=== PATIENT | female | born 1950 | race Caucasian/White ===

== ENCOUNTER → 2017-11-08 | Outpatient (CLI) | payer MEDICARE ==
[2017-11-08 08:46] LABS: BASOPHILS ABSOLUTE AUTO 0.03 K/mm3 (0.00-0.23); BASOPHILS PERCENT AUTO 1 % (0-2); EOSINOPHILS ABSOLUTE AUTO 0.05 K/mm3 (0.00-0.68); EOSINOPHILS PERCENT AUTO 1 % (0-6); Hematocrit 40.4 % (33.0-51.0); Hemoglobin 13.2 g/dL (11.5-16.0); IMMATURE GRAN ABSOLUTE AUTO 0.01 K/mm3 (0.00-0.10); IMMATURE GRAN PERCENT AUTO 0 % (0-1); LYMPHOCYTES ABSOLUTE AUTO 1.45 K/mm3 (0.84-5.20); LYMPHOCYTES PERCENT AUTO 29 % (21-46); MONOCYTES ABSOLUTE AUTO 0.36 K/mm3 (0.16-1.47); MONOCYTES PERCENT AUTO 7 % (4-13); Mean Corpuscular HGB 31.7 pg (26.0-34.0); Mean Corpuscular HGB Conc 32.7 g/dL (31.5-36.5); Mean Corpuscular Volume 97 fL (80-100); Mean Platelet Volume 12.3 fL (9.1-12.4); NEUTROPHILS ABSOLUTE AUTO 3.12 K/mm3 (1.96-9.15); NEUTROPHILS PERCENT AUTO 62 % (41-73); Platelet Count 215 K/mm3 (150-400); RDW Coefficient Variation 12.6 % (11.7-14.2); RDW Standard Deviation 45.1 fL (35.1-46.3); Red Blood Cell Count 4.17 M/mm3 (3.80-5.20); White Blood Cell Count 5.02 K/mm3 (4.00-11.30)
[2017-11-08 09:06] LABS: Alanine Aminotransfer (ALT/SGP 30 U/L (12-78); Albumin, Blood 4.6 g/dL (3.4-5.0); Albumin/Globulin Ratio 1.4 (0.8-1.8); Alk Phos 73 U/L (40-126); Anion Gap 12 mmol/L (6-16); Aspartate Aminotrans (AST/SGOT 25 U/L (12-37); Bilirubin, Total 1.2 mg/dL (0.1-1.0); Blood Urea Nitrogen 9 mg/dL (8-24); Bun/Creatinine Ratio 11.5 (12.0-20.0); CO2, Blood 25 mmol/L (21-32); Calcium, Blood 9.7 mg/dL (8.5-10.1); Chloride, Blood 101 mmol/L (98-108); Creatinine, Blood 0.78 mg/dL (0.40-1.00); Globulin, Blood 3.4 g/dL (2.2-4.0); Glomerular Filtration Rate >60 (60-); Glucose, Blood 127 mg/dL (70-99); Sodium, Blood 138 mmol/L (136-145)
== END | disposition home or self-care (01) ==
LOC: LAB SHORT 08:34 → LAB EV 08:34
PROVIDERS: Physician Assistant Medical
DX: I10 Essential (primary) hypertension (principal)
CPT/HCPCS: 80053; 85025

== ENCOUNTER → 2018-08-16 | Outpatient (CLI) | payer MEDICARE ==
[2018-08-18 15:06] LABS: HPV 16 Negative (Negative); HPV 18 Negative (Negative); HPV OTHER HR TYPES Negative (Negative)
== END | disposition home or self-care (01) ==
LOC: LAB 18:39 → LAB SHORT 18:39
PROVIDERS: Physician Assistant
DX: Z01.411 Encounter for gynecological examination (general) (routine) with abnormal findings (principal); R10.2 Pelvic and perineal pain
CPT/HCPCS: 87624; G0145

== ENCOUNTER → 2018-09-28 | Outpatient (CLI) | payer MEDICARE | END | disposition home or self-care (01) | LOC: LAB EV 12:26 → LAB SHORT 12:26 | DX: N39.0 Urinary tract infection, site not specified (principal) | CPT/HCPCS: 87086 ==

== ENCOUNTER 2020-03-17 13:20 | Inpatient (IN) | payer MEDICARE ==
[~2020-03-17] VITALS: Ht 165.1 cm; Wt 52.0 kg
[2020-03-17 14:35] LABS: BASOPHILS ABSOLUTE AUTO 0.01 K/mm3 (0.00-0.23); BASOPHILS PERCENT AUTO 0 % (0-2); EOSINOPHILS PERCENT AUTO 0 % (0-6); Hematocrit 41.5 % (33.0-51.0); Hemoglobin 13.4 g/dL (11.5-16.0); IMMATURE GRAN ABSOLUTE AUTO 0.04 K/mm3 (0.00-0.10); IMMATURE GRAN PERCENT AUTO 0 % (0-1); LYMPHOCYTES ABSOLUTE AUTO 0.38 K/mm3 (0.84-5.20); LYMPHOCYTES PERCENT AUTO 4 % (21-46); MONOCYTES ABSOLUTE AUTO 0.26 K/mm3 (0.16-1.47); MONOCYTES PERCENT AUTO 3 % (4-13); Mean Corpuscular HGB 31.5 pg (26.0-34.0); Mean Corpuscular HGB Conc 32.3 g/dL (31.5-36.5); Mean Corpuscular Volume 98 fL (80-100); Mean Platelet Volume 12.4 fL (9.1-12.4); NEUTROPHILS ABSOLUTE AUTO 8.69 K/mm3 (1.96-9.15); NEUTROPHILS PERCENT AUTO 93 % (41-73); Platelet Count 199 K/mm3 (150-400); RDW Standard Deviation 46.2 fL (35.1-46.3); Red Blood Cell Count 4.25 M/mm3 (3.80-5.20); White Blood Cell Count 9.38 K/mm3 (4.00-11.30)
[2020-03-17 16:04] LABS: Alanine Aminotransfer (ALT/SGP 49 U/L (12-78); Albumin, Blood 3.9 g/dL (3.4-5.0); Albumin/Globulin Ratio 1.1 (0.8-1.8); Alk Phos 77 U/L (50-136); Anion Gap 10 mmol/L (6-16); Aspartate Aminotrans (AST/SGOT 29 U/L (12-37); Bilirubin, Total 0.9 mg/dL (0.1-1.0); Blood Urea Nitrogen 10 mg/dL (8-24); Bun/Creatinine Ratio 15.5 (12.0-20.0); CO2, Blood 22 mmol/L (21-32); Calcium, Blood 9.5 mg/dL (8.5-10.1); Chloride, Blood 102 mmol/L (98-108); Creatinine, Blood 0.65 mg/dL (0.40-1.00); Globulin, Blood 3.5 g/dL (2.2-4.0); Glomerular Filtration Rate >60 (60-); Glucose, Blood 206 mg/dL (70-99); Potassium, Blood 3.4 mmol/L (3.5-5.5); Sodium, Blood 134 mmol/L (136-145); Total Protein, Blood 7.4 g/dL (6.4-8.2)
[2020-03-17 17:35] LABS: Source, Urine Clean Catch
[2020-03-17 17:38] LABS: Appearance, Urine Clear (Clear); Bilirubin, Urine Neg (Neg); Blood, Urine 3+ (Neg); Color, Urine Yellow (P-Yellow); Glucose Qualitative, Urine Neg (Neg); Ketones, Urine Neg (Neg); Leukocyte Esterase, Urine 3+ (Neg); Nitrite, Urine Neg (Neg); Protein, Urine 1+ (Neg); Urobilinogen, Urine NORM (Normal); pH, Urine 6.5 (5.0-8.0)
[2020-03-17 17:48] LABS: Bacteria Few /hpf; Squamous Epithelial Cells Rare /hpf (Few)
[2020-03-17] MEDS ORDERED: VALA500 PO (20:24)
[2020-03-17] MEDS ORDERED: BACL10 PO (20:24)
--- NOTE | 2020-03-18 01:58 | NUR ---
PT TAKEN TO OR @ 2232. PT REPORTS FEELING DIZZY WHEN SITTING UP, PT LAYED BACK DOWN AND TRANSPORTED ON OWN BED
[2020-03-18 02:13] LABS: BASOPHILS ABSOLUTE AUTO 0.01 K/mm3 (0.00-0.23); BASOPHILS PERCENT AUTO 0 % (0-2); EOSINOPHILS PERCENT AUTO 0 % (0-6); Hematocrit 42.4 % (33.0-51.0); Hemoglobin 13.5 g/dL (11.5-16.0); IMMATURE GRAN ABSOLUTE AUTO 0.03 K/mm3 (0.00-0.10); IMMATURE GRAN PERCENT AUTO 0 % (0-1); LYMPHOCYTES ABSOLUTE AUTO 0.78 K/mm3 (0.84-5.20); LYMPHOCYTES PERCENT AUTO 7 % (21-46); MONOCYTES PERCENT AUTO 5 % (4-13); Mean Corpuscular HGB Conc 31.8 g/dL (31.5-36.5); Mean Corpuscular Volume 98 fL (80-100); Mean Platelet Volume 11.6 fL (9.1-12.4); NEUTROPHILS ABSOLUTE AUTO 9.39 K/mm3 (1.96-9.15); NEUTROPHILS PERCENT AUTO 88 % (41-73); Platelet Count 187 K/mm3 (150-400); RDW Coefficient Variation 13.1 % (11.7-14.2); RDW Standard Deviation 47.1 fL (35.1-46.3); Red Blood Cell Count 4.35 M/mm3 (3.80-5.20); White Blood Cell Count 10.71 K/mm3 (4.00-11.30)
--- NOTE | 2020-03-18 02:24 | NUR ---
PATIENT ARRIVED TO ICU 10 FOR PACU RECOVERY, PATIENT RESTLESS AND PULLING AT LINES AT FIRST. PATIENT NOW CALM AND RELAXED ANSWERING QUESTIONS. ETTA, ABD DRESSING INTACT WITH DEJA WOUND VAC HOLDING GOOD SUCTION. GIORGI DRAINED OF 50 CC SEROSANG FLUID. NG IN PLACE TO LEFT CASTELLON AND CLAMPED. PLAN TO TRANSFER TO SURGICAL 210 POST PACU IF BP REMAINS STABLE.
[2020-03-18 02:27] LABS: Anion Gap 6 mmol/L (6-16); Blood Urea Nitrogen 11 mg/dL (8-24); Bun/Creatinine Ratio 14.8 (12.0-20.0); CO2, Blood 24 mmol/L (21-32); Calcium, Blood 7.7 mg/dL (8.5-10.1); Chloride, Blood 109 mmol/L (98-108); Creatinine, Blood 0.74 mg/dL (0.40-1.00); Glomerular Filtration Rate >60 (60-); Glucose, Blood 171 mg/dL (70-99); Potassium, Blood 4.2 mmol/L (3.5-5.5); Sodium, Blood 139 mmol/L (136-145)
--- NOTE | 2020-03-18 03:21 | NUR ---
PT ARRIVED BACK TO ROOM 210 FROM ICU RECOVERY. PT A/O UPON ARRIVAL, VSS, SATS >95% ON RA, LUNGS CLEAR T/O, PT DENIES SOB, REP PAIN W/DEEP BREATHS. MIDLINE DEJA DRESSING INTACT W/SCANT SS DRNG NOTED. GIORGI IN PLACE TO RLQ W/SS DRNG. PT C/O PAIN 8-01/10, MEDICATED PER EMAR. PT DENIES N/V, NGT TO LIS, NO DRNG NOTED AT THIS TIME. CONNOLLY PATANT DRNG YELLOW URINE. SCD'S PLACED. IVF RESTARTED PER ORDERS. CALL LIGHT IN REACH.
--- NOTE | 2020-03-18 06:25 | NUR ---
SHIFT SUMMARY ILEOCECECTOMY W/ INTERNAL HERNIA REPAIR OF THE SMALL BOWEL POD0, A/O X4, VSS, PATIENT NPO SINCE INITIAL ARRIVAL TO UNIT W/ NG TUBE IN PLACE CONNECTED TO LOW INTERMITTENT SUCTION, PAIN WELL CONTROLLED PER EMAR, OCNNOLLY IN PLACE FOR MAJOR SURGERY AND DRAINING WELL, PT ENCOURAGED TO TRY GETTING UP THIS MORNING TO HELP STIMULATE BOWEL FUNCTION, MIDLINE DRESSING HAS SCANT DRAINAGE, GIORGI EMPTIED 80 ML SS FLUID, PT DENIES N/V, DENIES SOB, REPORTS "FEELING MUCH BETTER THAN BEFORE SURGERY". CALL LIGHT IN PLACE, WILL CONTINUE TO MONITOR AND REPORT TO ONCOMING DAY RN.
--- NOTE | 2020-03-18 19:38 | NUR ---
SHIFT SUMMARY PT HAS DONE WELL TODAY. NGT & CATHLEEN DC'D. NO NAUSEA BUT UNABLE TO VOID. PAIN WELL MANAGED AND UP IN ROOM BUT DIDN'T FEEL UP TO AMBULATION IN HALLWAY TODAY.
--- NOTE | 2020-03-19 04:16 | NUR ---
SHIFT SUMMARY: PT POD#2 FOR EX LAP + ILEOCECECTOMY. MIDLINE DEJA C/D/I. GIORGI IN RLQ DRAINING SEROSANGUINOUS DRG. 80CC EMPTIED THIS SHIFT. PT MEDICATED WITH 0.2MG DILAUDID IN BEGINNING OF SHIFT. AT APPROX 0000 PT BEGAN COMPLAING OF "SCARY" HALLUCINATIONS AND REPROTS WANTING TO AVOID NARCOTICS. NEW ORDER FOR IBUPROFEN. PT ALSO REPORTS TAKING VALTREX DAILY TO PREVENT SHINGLES FLARE UP. NEW ORDER FOR 500MG VALTREX DAILY. PT UNABLE TO VOID THIS SHIFT AND REPORTS HER BLADDER FEELS NUMB. SHE STATES THIS IS NORMAL FOR HER AFTER SURGERY. STRAIGHT CATH INSERTED AT 0200 WITH 500CC YELLOW URINE OUT. PT DENIES PASSING FLATUS AND ENCOURAGED TO TAKE SHORT FREQ WALKS. PT INDEPENDENT IN ROOM. PT CONCERNED ABOUT NOT HAVING A BM YET BUT DOES NOT WANT TO TAKE STOOL SOFTNERS BECAUSE THEY MAKE HER NAUSEATED. HYPOACTIVE BT THROUGHOUT.
[2020-03-19 08:19] LABS: BASOPHILS PERCENT AUTO 0 % (0-2); EOSINOPHILS PERCENT AUTO 0 % (0-6); Hematocrit 29.7 % (33.0-51.0); Hemoglobin 9.7 g/dL (11.5-16.0); IMMATURE GRAN ABSOLUTE AUTO 0.03 K/mm3 (0.00-0.10); IMMATURE GRAN PERCENT AUTO 0 % (0-1); LYMPHOCYTES PERCENT AUTO 8 % (21-46); MONOCYTES ABSOLUTE AUTO 0.59 K/mm3 (0.16-1.47); MONOCYTES PERCENT AUTO 7 % (4-13); Mean Corpuscular HGB 31.6 pg (26.0-34.0); Mean Corpuscular HGB Conc 32.7 g/dL (31.5-36.5); Mean Corpuscular Volume 97 fL (80-100); Mean Platelet Volume 12.4 fL (9.1-12.4); NEUTROPHILS ABSOLUTE AUTO 7.32 K/mm3 (1.96-9.15); NEUTROPHILS PERCENT AUTO 85 % (41-73); Platelet Count 151 K/mm3 (150-400); RDW Coefficient Variation 13.7 % (11.7-14.2); RDW Standard Deviation 48.6 fL (35.1-46.3); Red Blood Cell Count 3.07 M/mm3 (3.80-5.20); White Blood Cell Count 8.64 K/mm3 (4.00-11.30)
--- NOTE | 2020-03-19 18:40 | NUR ---
SHIFT SUMMARY PT HAS DONE WELL TODAY. UP IN ROOM FREQ BUT NOT INTERESTED IN WALKING IN HALLWAYS BECUASE SHE'S "TOO SHY" TOLERATING CLEARS WELL; DENIES NAUSEA. VOIDING WELL. NOT PASSING GAS W/ SLIGHT DISTENTION.
--- NOTE | 2020-03-20 04:35 | NUR ---
SHIFT SUMMARY: ABD CONTINUES TO BE MILDLY DISTENDED. HYPERACTIVE BT THROUGHOUT. PT DENIES PASSING FLATUS. PT FREQ ENCOURAGED TO AMBULATE TO PROMOTE BOWEL MOTILITY. BEGAN TO COMPLAIN OF NAUSEA LAST NIGHT. NO EMESIS. NOT CHRISTAL PO LIQ. NEW ORDER TO RESTART LR @70CC/HR PER DR. SANDERS. PT HAVING DIFFICULT TIME VOIDING THIS SHIFT BUT FINALLY ABLE TO VOID 600CC THIS MORNING. INDPENDENT IN ROOM. DENIES ABD PAIN AND NOT REQUIRING PAIN MEDS.
[2020-03-20 11:45] LABS: BASOPHILS ABSOLUTE AUTO 0.01 K/mm3 (0.00-0.23); BASOPHILS PERCENT AUTO 0 % (0-2); EOSINOPHILS PERCENT AUTO 0 % (0-6); Hematocrit 30.1 % (33.0-51.0); Hemoglobin 9.5 g/dL (11.5-16.0); IMMATURE GRAN ABSOLUTE AUTO 0.04 K/mm3 (0.00-0.10); IMMATURE GRAN PERCENT AUTO 1 % (0-1); LYMPHOCYTES ABSOLUTE AUTO 0.87 K/mm3 (0.84-5.20); LYMPHOCYTES PERCENT AUTO 11 % (21-46); MONOCYTES ABSOLUTE AUTO 0.53 K/mm3 (0.16-1.47); MONOCYTES PERCENT AUTO 6 % (4-13); Mean Corpuscular HGB 30.9 pg (26.0-34.0); Mean Corpuscular HGB Conc 31.6 g/dL (31.5-36.5); Mean Corpuscular Volume 98 fL (80-100); Mean Platelet Volume 11.6 fL (9.1-12.4); NEUTROPHILS ABSOLUTE AUTO 6.87 K/mm3 (1.96-9.15); NEUTROPHILS PERCENT AUTO 83 % (41-73); Platelet Count 168 K/mm3 (150-400); RDW Coefficient Variation 13.6 % (11.7-14.2); Red Blood Cell Count 3.07 M/mm3 (3.80-5.20); White Blood Cell Count 8.32 K/mm3 (4.00-11.30)
--- NOTE | 2020-03-20 17:18 | NUR ---
SHIFT SUMMARY PT HAS HAD A GOOD DAY. TOLERATING LIQUIDS & APPLESAUCE. ALBULATING FREQ. STARTED PASSING GAS. DEEP BREATHING FREQ.
--- NOTE | 2020-03-21 05:05 | NUR ---
SHIFT SUMMARY LYING IN SEMI FOWLERS WITH EYES OPEN WHILE WATCHING TV. AAO X4, CHAMBERS, FOLLOWS ALL COMMANDS. HAS BEEN VERY PLEASANT AND COOPERATIVE THROUGHOUT SHIFT. NO SIGNIFICANT CHANGES SINCE START OF SHIFT. MEDICATED FOR PAIN X1 WITH IBUPROFEN. MIDLINE DEJA DRESSING IS C/D/I WITH SCANT DRY DRAINAGE NOTED BELOW THE UMBILICUS. INDEPENDANT IN ROOM, SL PIV. DENIES FURTHER NEEDS OR WANTS AT THIS TIME. SAFETY MEASURES IN PLACE. WILL GIVE HAND OFF TO ONCOMING SHIFT USING SBAR.
--- NOTE | 2020-03-21 16:19 | NUR ---
DISCHARGE PT PROVIDED WITH WRITTEN AND VERBAL DISCHARGE INSTRUCTIONS; SHE REPORTED UNDERSTANDING. DRESSINGS PROVIDED. PT DID NOT REQUIRE ANY MEDICATIONS TO GO HOME WITH OR HAVE CALLED IN. PT AMBULATED OUT INDEPEDENTLY AND WAS ACCOMPANIED BY YVONNE MCNEILL.
== END 2020-03-21 16:16 | disposition home or self-care (01) | DRG 329 ==
LOC: ER 13:20 → SURS 20:20 → ICUW 03-18 02:00 → SURS 03-18 03:05
PROVIDERS: Emergency Medicine; ADMIT Surgery
PROC: 0DTH0ZZ Resection of Cecum, Open Approach (ICD-10-PCS; principal; 2020-03-18)
PROC: 0DB80ZZ Excision of Small Intestine, Open Approach (ICD-10-PCS; 2020-03-18)
PROC: 0DNU0ZZ Release Omentum, Open Approach (ICD-10-PCS; 2020-03-18)
DX: K56.50 Intestinal adhesions [bands], unspecified as to partial versus complete obstruction (principal); K55.029 Acute infarction of small intestine, extent unspecified; Z20.828 Contact with and (suspected) exposure to other viral communicable diseases
CPT/HCPCS: 36415; 71045; 74177; 80048; 80053; 81001; 83605; 83690; 85025; 87086; 88307; 93005; 93010; 96361; 96374; 96375; 96376; 99285-25; J0744; J1100; J1170; J2270; J2370; J2405; J2704; J2710; J3010; J7030; J7120; Q9967; U0004

== ENCOUNTER → 2022-08-25 | Outpatient (CLI) | payer MEDICARE ==
[~2022-08-25] MED LIST: BACL10 PO; VALA500 PO
[2022-08-29 05:12] LABS: HSV-1 DNA Negative (Negative); HSV-2 DNA Negative (Negative)
== END | disposition home or self-care (01) ==
LOC: LAB 14:49 → LAB SHORT 14:49
PROVIDERS: Physician Assistant
DX: R21 Rash and other nonspecific skin eruption (principal)
CPT/HCPCS: 87529